=== PATIENT | male | born 1990 | race African-American/Black ===

== ENCOUNTER 2020-04-06 02:48 | Emergency (ER) | payer OTHER ==
[2020-04-06 02:53] VITALS: BP 141/90; PULSE 61; RESP 18; TEMP 97.7
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
[2020-04-06] MEDS ORDERED: PENICILLIN VK 500MG STARTER 4 TAB BTL PO STA (03:04)
[2020-04-06] MEDS ORDERED: BUPIVACAINE (PF) 0.25% 30 ML VIAL SQ STA (03:05)
[2020-04-06] MEDS ORDERED: LIDOCAINE 1% INJ 10MG/ML (20 ML MDV) SQ ONE (03:05)
[2020-04-06] MEDS ORDERED: IBUPROFEN 600 MG STARTER PACK 4 TAB BTL PO STA (03:30)
== END 2020-04-06 03:42 | disposition home or self-care (01) ==
LOC: EC 02:48
DX: K02.9 Dental caries, unspecified (principal); K03.81 Cracked tooth
CPT/HCPCS: 64400; 99283; J2001

== ENCOUNTER 2020-04-08 16:28 | Emergency (ER) | payer OTHER ==
[2020-04-08 16:32] VITALS: RESP 18
[2020-04-08] MEDS ORDERED: HYDROmorphone 0.5 MG/0.5 ML SYRINGE IVP STA (17:00)
[2020-04-08] MEDS ORDERED: SODIUM CHLORIDE 0.9% 1,000 ML IV STA (17:00)
[2020-04-08] MEDS ORDERED: PANTOPRAZOLE 40 MG/10 ML VIAL IVP STA (17:00)
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
[2020-04-08 17:25] LABS: Basophils % (A) 1 %; Eosinophils # (A) 0.2 k/uL (0-0.7); Eosinophils % (A) 3 %; HCT 45.7 % (39.0-53.0); HGB 14.6 gm/dL (13.0-17.5); Lymphocytes # (A) 1.8 k/uL (1.0-4.8); Lymphocytes % (A) 33 %; MCH 30.4 pg (25.0-35.0); MCHC 31.9 g/dL (31.0-37.0); MCV 95.6 fL (80.0-100.0); Mean Platelet Volume 7.8; Monocytes # (A) 0.5 k/uL (0-1.0); Monocytes % (A) 8 %; Neutrophils # (A) 2.9 k/uL (1.3-7.7); Neutrophils % (A) 52 %; Platelet Count 292 k/uL (150-450); RBC 4.78 m/uL (4.30-5.90); RDW 13.7 % (11.5-15.5); WBC 5.5 k/uL (3.8-10.6)
[2020-04-08 17:41] LABS: Appearance,Urine Clear (Clear); Bacteria,Urine Rare /hpf; Bilirubin,Urine Negative (Negative); Blood,Urine Negative (Negative); Color,Urine Yellow; Glucose,Urine (UA) Negative (Negative); Ketones,Urine Negative (Negative); Leukocyte Esterase,Urine Negative (Negative); Mucus,Urine Moderate /hpf; Nitrite,Urine Negative (Negative); PH, Urine 7.5 (5.0-8.0); Protein,Urine 1+ (Negative); RBC,Urine <1 /hpf (0-5); Specific Gravity,Urine 1.033 (1.001-1.035); Squamous Epithelial Cell,Urine <1 /hpf (0-4); WBC,Urine 1 /hpf (0-5)
[2020-04-08 17:43] LABS: ALT 17 U/L (4-49); AST 29 U/L (17-59); African American GFR (CKD) >90 (>60 ml/min/1.73 sqM); Albumin 3.9 g/dL (3.5-5.0); Alkaline Phosphatase 68 U/L (38-126); Amylase 73 U/L (30-110); Anion Gap 6 mmol/L; Blood Urea Nitrogen 10 mg/dL (9-20); Calcium 9.3 mg/dL (8.4-10.2); Carbon Dioxide 25 mmol/L (22-30); Chloride 108 mmol/L (98-107); Glucose 91 mg/dL (74-99); Non-African American GFR(CKD) >90 (>60 ml/min/1.73 sqM); Potassium 4.1 mmol/L (3.5-5.1); Sodium 139 mmol/L (137-145); Total Bilirubin 0.7 mg/dL (0.2-1.3); Total Protein 7.1 g/dL (6.3-8.2)
[2020-04-08 17:50] LABS: Partial Thromboplastin Time 26.1 sec (22.0-30.0); Prothrombin Time 9.9 sec (9.0-12.0)
--- NOTE | 2020-04-08 18:16 | CT ---
EXAMINATION TYPE: CT abdomen pelvis wo con DATE OF EXAM: 04/08/2020 HISTORY: LLQ pain TECHNIQUE: Departmental protocol. CT DLP: 473 mGycm. Automated exposure control for dose reduction was used. COMPARISON: None FINDINGS: Within the limitations of noncontrast CT the following observations are made. LUNG BASES: No acute findings. LIVER/GB: No significant abnormality is appreciated. PANCREAS: No significant abnormality is seen. SPLEEN: No significant abnormality is seen. ADRENALS: No significant abnormality is seen. KIDNEYS: No significant abnormality is seen. PERITONEAL CAVITY: There is no pneumoperitoneum. No peritoneal fluid. RETROPERITONEAL ADENOPATHY: None visualized REPRODUCTIVE ORGANS: No significant abnormality is seen URINARY BLADDER: No significant abnormality is seen. PELVIC ADENOPATHY: None visualized. OSSEOUS STRUCTURES: No significant abnormality is seen. BOWEL: No bowel obstruction. However, excessive colonic stool is seen from the distal transverse col on to the anal verge. No pneumatosis. No pneumoperitoneum. IMPRESSION: CT FINDINGS CAN CORRELATE WITH A CLINICAL DIAGNOSIS OF CONSTIPATION.
[2020-04-08] MEDS ORDERED: MAGNESIUM CITRATE 296 ML BOTTLE PO ONE (18:37)
[2020-04-08] MEDS ORDERED: GABAPENTIN 300 MG CAP PO STA (18:37)
[2020-04-08 18:55] VITALS: BP 135/95; PULSE 64; TEMP 97.8
== END 2020-04-08 18:52 | disposition home or self-care (01) ==
LOC: EC 16:28
DX: K59.00 Constipation, unspecified (principal); R22.2 Localized swelling, mass and lump, trunk; Z87.19 Personal history of other diseases of the digestive system; Z98.890 Other specified postprocedural states; Z87.828 Personal history of other (healed) physical injury and trauma
CPT/HCPCS: 36415; 80053; 82150; 83690; 85025; 85610; 85730; 81001; 74176; 99284; 96374; 96375; 96361 ×2; C9113; J1170